=== PATIENT | female | born 1995 | race Caucasian/White ===

== ENCOUNTER 2018-01-22 09:06 | Emergency (ER) | END 2018-01-22 10:50 | disposition home or self-care (01) ==

== ENCOUNTER 2019-04-10 19:23 | Emergency (ER) | payer MEDICAID ==
[~2019-04-10] VITALS: Ht 167.6 cm; Wt 82.0 kg
[~2019-04-10 19:23] MED LIST: ALBU8.5H8 INH; BENZ-6 PO; CETI10CA PO; DIPH25CA6 PO; FLUT9.9S NASAL; GUAI118L22 PO; IBUP-1542 PO; PRED20TA PO
[2019-04-10 20:05] VITALS: Ht 167.6 cm; Wt 82.0 kg
[2019-04-10] MEDS ORDERED: LIDOCAINE/MYLANTA 40 ML BTL PO ONE (22:00)
[2019-04-10] MEDS ORDERED: RANI150T35 PO (23:06)
[2019-04-10 23:21] VITALS: BP 127/72; PULSE 63; RESP 18
--- NOTE | 2019-04-11 01:33 | ERD ---
ER Documentation Chief Complaint Chief Complaint CP X 2 DAYS, RT ARM NUMBNESS HPI 23-year-old female with no significant past medical history presenting to the emergency department complaining of a "warm sensation in her chest" which began earlier today. She reports associated chest pressure which is intermittent. She denies any shortness of breath. Symptoms are mild in severity. She does state that her symptoms began after eating spicy food from [employer]. She tried no medication for relief of symptoms. She denies any headache, dizziness, syncope, nausea, vomiting, abdominal pain, or other symptoms at this time. ROS All systems reviewed and are negative except as per history of present illness. Medications Home Meds Active Scripts Ranitidine Hcl* (Zantac*) 150 Mg Tablet, 150 MG PO BID PRN for EPIGASTRIC PAIN, #30 TAB Prov:MITALI FORMAN PA-C 04/10/19 Cetirizine Hcl* (Zyrtec*) 10 Mg Capsule, 10 MG PO DAILY, #10 TAB.CHEW Prov:FRANCISCA FAY PA-C 01/22/18 Fluticasone Propionate (Flonase Allergy Relief) 9.9 Ml [place].susp, 1 SPRAY NASAL BID, #1 BOTTLE TO EACH NOSTRIL Prov:FRANCISCA FAY PA-C 01/22/18 Ibuprofen* (Motrin*) 600 Mg Tab, 600 MG PO Q6, #30 TAB Prov:FRANCISCA FAY PA-C 01/22/18 Benzonatate* (Tessalon Perle*) 100 Mg Capsule, 100 MG PO Q8H PRN for COUGH, #30 CAP Prov:FRANCISCA FAY PA-C 01/22/18 Guaifenesin/Codeine Phosphate (CHERATUSSIN AC SYRUP) 118 Ml Liquid, 5 ML PO Q6, #120 ML Prov:CYNDY NOBLE DO 12/21/15 Albuterol Sulfate* (Proair HFA*) 8.5 Gm Hfa.aer.ad, 2 PUFF INH Q4H PRN for WHEEZING AND SOB, #1 INHALER Prov:CYNDY NOBLE DO 12/21/15 Prednisone* (Prednisone*) 20 Mg Tab, 40 MG PO DAILY for 5 Days, TAB Prov:CYNDY NOBLE DO 12/21/15 Diphenhydramine Hcl* (Diphenhydramine Hcl*) 25 Mg Capsule, 25 MG PO Q6 PRN for ITCHING, #30 TAB Prov:ANA LONGWale MCKEON 04/08/15 Allergies Allergies: Coded Allergies: No Known Allergies (Verified Allergy, Unknown, 02/13/14) PMhx/Soc Medical and Surgical Hx: pt denies Medical Hx, pt denies Surgical Hx History of Surgery: No Anesthesia Reaction: No Hx Neurological Disorder: No Hx Respiratory Disorders: No Hx Cardiac Disorders: No Hx Psychiatric Problems: No Hx Miscellaneous Medical Probl: No Hx Alcohol Use: No Hx Substance Use: No Hx Tobacco Use: No Smoking Status: Never smoker FmHx Family History: No diabetes Physical Exam Vitals Vital Signs Date Temp Pulse Resp B/P (MAP) Pulse Ox O2 O2 Flow FiO2 Time Delivery Rate 04/10/19 98.1 63 18 127/72 97 23:21 (90) 04/10/19 98.9 73 18 123/73 99 20:05 (90) Physical Exam Const: No acute distress Head: Atraumatic Eyes: Normal Conjunctiva ENT: Normal External Ears, Nose and Mouth. Neck: Full range of motion. No meningismus. Resp: Clear to auscultation bilaterally Cardio: Regular rate and rhythm, no murmurs. Reproducible chest wall tenderne ss to palpation. Abd: Soft, non tender, non distended. Normal bowel sounds. No rebound tenderness or guarding. No McBurney's point tenderness. Skin: No petechiae or rashes Ext: No cyanosis, or edema Neur: Awake and alert Psych: Normal Mood and Affect Result Diagram: 04/10/19221904/10/19 222 Results 24 hrs Laboratory Tests Test 04/10/19 21:50 04/10/19 22:02 04/10/19 22:20 Urine Color YELLOW Urine Clarity SLIGHTLY CLOUDY Urine pH 6.0 Urine Specific [place] 1.013 Urine Ketones NEGATIVE mg/dL Urine Nitrite NEGATIVE mg/dL Urine Bilirubin NEGATIVE mg/dL Urine Urobilinogen NEGATIVE mg/dL Urine Leukocyte Esterase NEGATIVE Richard/ul Urine Microscopic RBC 1 /HPF Urine Microscopic WBC 2 /HPF Urine Squamous Epithelial Cells FEW /HPF Urine Hemoglobin 1+ mg/dL Urine Glucose NEGATIVE mg/dL Urine Total Protein NEGATIVE mg/dl Bedside Urine pH (LAB) 6.0 Bedside Urine Protein (LAB) Negative Bedside Urine Glucose (UA) Negative Bedside Urine Ketones (LAB) Negative Bedside Urine Blood Trace-lysed Bedside Urine Nitrite (LAB) Negative Bedside Urine Leukocyte Esterase Negative (L White Blood Count 10.2 10^3/ul Red Blood Count 4.95 10^6/ul Hemoglobin 14.0 g/dl Hematocrit 42.2 % Mean Corpuscular Volume 85.3 fl Mean Corpuscular Hemoglobin 28.3 pg Mean Corpuscular 33.2 g/dl Hemoglobin Concent Red Cell Distribution Width 13.0 % Platelet Count 344 10^3/UL Mean Platelet Volume 11.0 fl Immature Granulocytes % 0.300 % Neutrophils % 77.3 % Lymphocytes % 17.4 % Monocytes % 3.8 % Eosinophils % 0.7 % Basophils % 0.5 % Nucleated Red Blood Cells % 0.0 /100WBC Immature Granulocytes # 0.030 10^3/ul Neutrophils # 7.9 10^3/ul Lymphocytes # 1.8 10^3/ul Monocytes # 0.4 10^3/ul Eosinophils # 0.1 10^3/ul Basophils # 0.1 10^3/ul Nucleated Red Blood Cells # 0.0 10^3/ul Sodium Level 139 mmol/L Potassium Level 4.5 mmol/L Chloride Level 105 mmol/L Carbon Dioxide Level 26 mmol/L Anion Gap 8 Blood Urea Nitrogen 15 mg/dl Creatinine 0.75 mg/dl Est Glomerular Filtrat > 60 mL/min Rate mL/min Glucose Level 110 mg/dl Calcium Level 10.2 mg/dl Total Bilirubin 0.5 mg/dl Direct Bilirubin 0.00 mg/dl Indirect Bilirubin 0.5 mg/dl Aspartate Amino Transf (AST/SGOT) 23 IU/L Alanine 28 IU/L Aminotransferase (ALT/SGPT) Alkaline Phosphatase 80 IU/L Troponin I < 0.012 ng/ml Total Protein 8.0 g/dl Albumin 4.8 g/dl Globulin 3.20 g/dl Albumin/Globulin Ratio 1.50 Current Medications Medications Dose Sig/Vashti Start Time Status Last (Trade) Ordered Route PRN Stop Time Admin Dose Reason Admin 40 ml ONCE ONCE 04/10/19 DC 04/10/19 Miscellaneous PO 22:00 04/10/19 22:19 Medication 22:01 (Gi Cocktail (2)) [address] [address] Radiology Main Line: [phone] DIAGNOSTIC IMAGING REPORT Patient: RADHA CURRIE : 1995 Age: 23 Sex: F MR #: [id number] DOS: 04/10/192131 Ordering MD: MITALI FORMAN PA-C Location: [facility] Room/Bed: PROCEDURE: XR Chest. CLINICAL INDICATION: Chest pain TECHNIQUE: Single portable view of the chest was obtained COMPARISON: CR CHEST 08/30/2012 FINDINGS: The trachea is midline. The cardiac silhouette is mildly enlarged and pulmonary vascularity are within normal limits. The lungs are clear. The costophrenic angles are sharp. IMPRESSION: 1. Mild cardiomegaly. No evidence of acute cardiopulmonary disease. RPTAT: AAPP Physician Kwesi Date Time Electronically viewed and signed by Addis Hercules Physician on 04/10/2019 22:10 JL/ CC: MITALI FORMAN PA-C [id number] Procedures/MDM 23-year-old female presenting to the emergency department complaining of chest pressure and a warm sensation in her chest. Patient was administered GI cocktail in the department with good response. On reevaluation she was significantly improved. Chest x-ray showed cardiomegaly but no other significant acute findings. CBC: no e/o of systemic infection or severe anemia CMP: no e/o severe acidosis, alkalosis, renal failure, diabetic ketoacidosis, liver disease Urinalysis: No evidence of infection. Troponin: Within normal limits. EKG: Interpreted by ED physician. Rate/Rhythm: Normal Sinus Rhythm with a rate of 69 bpm. QRS, ST, T-waves: No changes consistent w/ acute ischemia Impression: No evidence of ischemia or arrhythmia Medical decision making: Symptoms likely secondary to GERD or costochondritis. Patient's thoracic symptoms have stabilized while in the department and are stable for outpatient follow up. Exam and work up not consistent w/ ischemia, arrhythmia, PE or dissection. No evidence of life-threatening pathology at time of discharge. Pt/family in agreement with discharge plan/diagnosis. Pt/family advised to return immediately with any new or worsening symptoms. Follow-up with primary care physician within the next 1-2 days. Disclaimer: Inadvertent spelling and gr ammatical errors are likely due to EHR/dictation software use and do not reflect on the overall quality of patient care. Also, please note that the electronic time recorded on this note does not necessarily reflect the actual time of the patient encounter. Departure Diagnosis: Primary Impression: Chest pain Condition: Fair Patient Instructions: Chest Wall Pain, Costochondritis, Gerd (Adult) Referrals: [facility] YOU HAVE RECEIVED A MEDICAL SCREENING EXAM AND THE RESULTS INDICATE THAT YOU DO NOT HAVE A CONDITION THAT REQUIRES URGENT TREATMENT IN THE EMERGENCY DEPARTMENT. FURTHER EVALUATION AND TREATMENT OF YOUR CONDITION CAN WAIT UNTIL YOU ARE SEEN IN YOUR DOCTORS OFFICE WITHIN THE NEXT 1-2 DAYS. IT IS YOUR RESPONSIBILITY TO MAKE AN APPOINTMENT FOR FOLOW-UP CARE. IF YOU HAVE A PRIMARY DOCTOR --you should call your primary doctor and schedule an appointment IF YOU DO NOT HAVE A PRIMARY DOCTOR YOU CAN CALL OUR PHYSICIAN REFERRAL HOTLINE AT IF YOU CAN NOT AFFORD TO SEE A PHYSICIAN YOU CAN CHOSE FROM THE FOLLOWING [facility][1] [address] [facility]. [facility] [address] [facility]. [facility] [address] [facility] [facility] [address] [facility] [address] [facility]. [facility]. [address] [place] Additional Instructions: Call your primary care doctor TOMORROW for an appointment during the next 1-2 d ays.See the doctor sooner or return here if your condition worsens before your appointment time. MITALI FORMAN PA-C Apr 11, 2019 01:26
== END 2019-04-10 23:22 | disposition home or self-care (01) ==
LOC: FTE 19:23
DX: R07.89 Other chest pain (principal)
CPT/HCPCS: 71045; 80053; 81001; 84484; 85025; 93005; Z7502; Z7610; 81003

== ENCOUNTER 2019-04-12 22:20 | Emergency (ER) | payer MEDICAID, OTHER ==
[~2019-04-12] VITALS: Ht 167.6 cm; Wt 81.6 kg
[~2019-04-12 22:20] MED LIST changes: +RANI150T35 PO
[2019-04-12 22:44] VITALS: Ht 167.6 cm; Wt 81.6 kg
[2019-04-13] MEDS ORDERED: IBUPROFEN 600 MG TAB PO ONE (01:30)
[2019-04-13] MEDS ORDERED: LORAZEPAM 1 MG TAB PO ONE (01:30)
[2019-04-13] MEDS ORDERED: LORA1TAB PO (03:00)
[2019-04-13] MEDS ORDERED: IBUP-1542 PO (03:00)
[2019-04-13 03:15] VITALS: BP 128/78; PULSE 16; RESP 16
--- NOTE | 2019-04-13 04:00 | ERD ---
ER Documentation Chief Complaint Chief Complaint on off chest pain x 3 days HPI 23-year-old female presented to the emergency department complaining of intermittent chest pain for the past 3 days. She describes a pressure sensation. Associated symptoms include nausea. She was here 2 days ago for similar symptoms and seen by myself and had a negative cardiac work-up. She returns today for worsening pressure sensation of the chest. She denies any shortness of breath. She denies any fevers or chills or other symptoms at this time. ROS All systems reviewed and are negative except as per history of present illness. Medications Home Meds Active Scripts Ibuprofen* (Motrin*) 600 Mg Tab, 600 MG PO Q6, #30 TAB Prov:MITALI FORMAN PA-C 04/13/19 Lorazepam* (Lorazepam*) 1 Mg Tablet, 1 MG PO Q8H PRN for ANXIETY, #10 TAB Prov:MITALI FORMAN PA-C 04/13/19 Ranitidine Hcl* (Zantac*) 150 Mg Tablet, 150 MG PO BID PRN for EPIGASTRIC PAIN, #30 TAB Prov:MITALI FORMAN PA-C 04/10/19 Cetirizine Hcl* (Zyrtec*) 10 Mg Capsule, 10 MG PO DAILY, #10 TAB.CHEW Prov:FRANCISCA FAY PA-C 01/22/18 Fluticasone Propionate (Flonase Allergy Relief) 9.9 Ml [place].susp, 1 SPRAY NASAL BID, #1 BOTTLE TO EACH NOSTRIL Prov:FRANCISCA FAY PA-C 01/22/18 Ibuprofen* (Motrin*) 600 Mg Tab, 600 MG PO Q6, #30 TAB Prov:FRANCISCA FAY PA-C 01/22/18 Benzonatate* (Tessalon Perle*) 100 Mg Capsule, 100 MG PO Q8H PRN for COUGH, #30 CAP Prov:FRANCISCA FAY PA-C 01/22/18 Guaifenesin/Codeine Phosphate (CHERATUSSIN AC SYRUP) 118 Ml Liquid, 5 ML PO Q6, #120 ML Prov:CYDNY NOBLE DO 12/21/15 Albuterol Sulfate* (Proair HFA*) 8.5 Gm Hfa.aer.ad, 2 PUFF INH Q4H PRN for WHEEZING AND SOB, #1 INHALER Prov:CYNDY NOBLE DO 12/21/15 Prednisone* (Prednisone*) 20 Mg Tab, 40 MG PO DAILY for 5 Days, TAB Prov:CYNDY NOBLE DO 12/21/15 Diphenhydramine Hcl* (Diphenhydramine Hcl*) 25 Mg Capsule, 25 MG PO Q6 PRN for ITCHING, #30 TAB Prov:ANA LONG NP 04/08/15 Allergies Allergies: Coded Allergies: No Known Allergies (Verified Allergy, Unknown, 02/13/14) PMhx/Soc Medical and Surgical Hx: pt denies Medical Hx, pt denies Surgical Hx History of Surgery: No Anesthesia Reaction: No Hx Neurological Disorder: No Hx Respiratory Disorders: No Hx Cardiac Disorders: No Hx Psychiatric Problems: No Hx Miscellaneous Medical Probl: No Hx Alcohol Use: No Hx Substance Use: No Hx Tobacco Use: No Smoking Status: Never smoker FmHx Family History: No diabetes Physical Exam Vitals Vital Signs Date Temp Pulse Resp B/P (MAP) Pulse Ox O2 O2 Flow FiO2 Time Delivery Rate 04/13/19 97.9 16 16 128/78 98 Room Air 03:15 (95) 04/12/19 98.8 80 18 138/60 99 22:44 (86) Physical Exam Const: No acute distress Head: Atraumatic Eyes: Normal Conjunctiva ENT: Normal External Ears, Nose and Mouth. Neck: Full range of motion. No meningismus. Resp: Clear to auscultation bilaterally Cardio: Regular rate and rhythm, no murmurs. Reproducible left-sided chest wall tenderness to palpation. Skin: No petechiae or rashes Back: No midline or flank tenderness Ext: No cyanosis, or edema Neur: Awake and alert Psych: Slightly anxious. Result Diagram: 04/13/193 04/13/19 0123 Results 24 hrs Laboratory Tests Test 04/13/19 01:23 White Blood Count 9.6 10^3/ul Red Blood Count 4.86 10^6/ul Hemoglobin 13.6 g/dl Hematocrit 41.6 % Mean Corpuscular Volume 85.6 fl Mean Corpuscular Hemoglobin 28.0 pg Mean Corpuscular Hemoglobin Concent 32.7 g/dl Red Cell Distribution Width 13.2 % Platelet Count 341 10^3/UL Mean Platelet Volume 10.8 fl Immature Granulocytes % 0.300 % Neutrophils % 65.8 % Lymphocytes % 27.8 % Monocytes % 4.8 % Eosinophils % 0.8 % Basophils % 0.5 % Nucleated Red Blood Cells % 0.0 /100WBC Immature Granulocytes # 0.030 10^3/ul Neutrophils # 6.3 10^3/ul Lymphocytes # 2.7 10^3/ul Monocytes # 0.5 10^3/ul Eosinophils # 0.1 10^3/ul Basophils # 0.1 10^3/ul Nucleated Red Blood Cells # 0.0 10^3/ul D-Dimer 328.51 ng/ml D-Dimer Comment Sodium Level 143 mmol/L Potassium Level 4.3 mmol/L Chloride Level 108 mmol/L Carbon Dioxide Level 25 mmol/L Anion Gap 10 Blood Urea Nitrogen 11 mg/dl Creatinine 0.64 mg/dl Est Glomerular Filtrat Rate mL/min > 60 mL/min Glucose Level 110 mg/dl Calcium Level 9.7 mg/dl Troponin I < 0.012 ng/ml Current Medications Medications Dose Sig/Vashti Start Time Status Last (Trade) Ordered Route PRN Stop Time Admin Dose Reason Admin Lorazepam 1 mg ONCE ONCE 04/13/19 DC 04/13/19 (Ativan) PO 01:30 04/13/19 01:29 01:31 Ibuprofen 600 mg ONCE ONCE 04/13/19 DC 04/13/19 (Motrin) PO 01:30 04/13/19 01:31 01:31 Procedures/MDM 23-year-old female presenting to the emergency department with signs and symptoms most consistent with anxiety reaction. She was having chest pain and a work-up was obtained which showed no significant acute abnormalities. Troponin, CBC, CMP, d-dimer were within normal limits. She was administered Ativan and ibuprofen and was significantly improved prior to discharge. No evidence to suggest pulmonary embolism, acute coronary syndrome, aortic dissection, pneumothorax, pneumonia, or other emergencies. Patient's thoracic symptoms have stabilized while in the department and are stable for outpatient follow up. I discussed this case with attending ED physician, Dr. Jase Varma who is in agreement with the diagnosis, plan, and overall ED course. EKG: Interpreted by ED physician Rate/Rhythm: Normal Sinus Rhythm with a rate of 61 bpm. QRS, ST, T-waves: No changes consistent w/ acute ischemia Impression: No evidence of ischemia or arrhythmia Departure Diagnosis: Primary Impression: Chest pain Additional Impression: Anxiety reaction Condition: Fair Patient Instructions: Anxiety Reaction, Chest Pain, Uncertain Cause Additional Instructions: Call your primary care doctor TOMORROW for an appointment during the next 1-2 days.See the doctor sooner or return here if your condition worsens before your appointment time. MITALI FORMAN PA-C Apr 13, 2019 04:00
== END 2019-04-13 03:17 | disposition home or self-care (01) ==
LOC: FTE 22:20
DX: R07.89 Other chest pain (principal); F41.9 Anxiety disorder, unspecified
CPT/HCPCS: 36415; 71045; 80048; 84484; 85025; 85378; 93005; Z7502; Z7610